=== PATIENT | female | born 1970 | race Caucasian/White ===

== ENCOUNTER 2016-11-18 06:42 | Observation (INO) | payer MEDICARE, OTHER ==
[2016-11-18 07:58] LABS: HEMOGLOBIN 14.4 gm/dl (12.3-15.3); RED BLOOD COUNT 4.92 M/UL (4.00-5.10); WHITE BLOOD COUNT 7.4 K/UL (4.5-11.0)
[2016-11-18 09:26] LABS: BUN/CREATININE RATIO 11 (0-10)
== END 2016-11-18 12:50 | disposition home or self-care (01) ==
LOC: ER1 06:42 → ZEROF 10:21
PROVIDERS: Emergency Medicine; ADMIT Internal Medicine
DX: R00.1 Bradycardia, unspecified (principal); I10 Essential (primary) hypertension; E03.9 Hypothyroidism, unspecified; F41.9 Anxiety disorder, unspecified; E66.9 Obesity, unspecified; Z87.891 Personal history of nicotine dependence; Z79.899 Other long term (current) drug therapy; Z98.51 Tubal ligation status; Z98.890 Other specified postprocedural states
CPT/HCPCS: 36415; 70450; 71010; 80053; 82550; 82553; 83874; 84443; 84484; 84703; 85025; 93005; 99285; G0378; J2060